=== PATIENT | female | born 1980 | race Caucasian/White ===

== ENCOUNTER 2020-08-06 22:16 | Emergency (ER) | payer OTHER, SELFPAY ==
[2020-08-06 22:19] VITALS: BP 132/68; PULSE 99; RESP 20; O2SAT 100; BMI 21.4
--- NOTE | 2020-08-06 22:30 | ECG_ITS ---
Test Reason : PALPITATIONS Blood Pressure : / mmHG Vent. Rate : 088 BPM Atrial Rate : 088 BPM P-R Int : 148 ms QRS Dur : 102 ms QT Int : 388 ms P-R-T Axes : 073 [id number] 039 degrees QTc Int : 469 ms Normal sinus rhythm Rightward axis Incomplete right bundle branch block Nonspecific ST abnormality Borderline ECG When compared with ECG of 27-JUN-2020 00:41, No significant change was found Referred By: Mini De Paz Electronically Signed By:CIRO BIRD
--- NOTE | 2020-08-06 22:42 | XR_ITS ---
EXAMINATION: XR CHEST CLINICAL INFORMATION: Palpitations COMPARISON: None TECHNIQUE: Frontal view of the chest was obtained. 11:01 PM FINDINGS: No significant abnormality is noted involving the heart, lungs, mediastinum, bony thorax or soft tissues. IMPRESSION: Unremarkable examination.
--- NOTE | 2020-08-06 22:59 | ED_ITS ---
HPI - Arrhythmia/Palpitations General Chief Complaint: Arrhythmia/Palpitations <VU Minaya Last Filed: 08/07/20 03:05> Stated Complaint: ANXIETY <VU Minaya Last Filed: 08/07/20 03:05> Time Seen by Provider: 08/06/20 22:42 <VU Minaya Last Filed: 08/07/20 03:05> Source: patient <VU Minaya Last Filed: 08/07/20 03:05> Mode of arrival: ambulatory <VU Minaya Last Filed: 08/07/20 03:05> Limitations: no limitations <VU Minaya Last Filed: 08/07/20 03:05> History of Present Illness HPI narrative: 39-year-old female presents with palpitations and anxiety. States that she over the past several weeks she has had multiple episodes of heart racing, dizziness, and anxiety. She has had a history of panic attacks in the past but states that this feels a bit different. States the palpitations start and then she becomes anxious because of the palpitations, prior anxiety attacks and panic have been the opposite were anxiety has started and then palpitations. 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 She does not have any chest pain or pressure with these palpitations but does have occasional shortness of breath. she does not describe any chest pain or pressure, fevers, chills, abdominal pain, abdominal distention, dysuria, hematuria, melena, hematochezia, abnormal menstrual cycle, easy bleeding bruising, loss of balance, falls, trauma, illicit drug use and alcohol use. <VU Minaya Last Filed: 08/07/20 03:05> MD complaint: rapid heart beat and skipped beats <VU Minyaa Last Filed: 08/07/20 03:05> Onset (ago): week(s) ( several weeks) <VU Minaya Last Filed: 08/07/20 03:05> Duration: intermittent <VU Minaya Last Filed: 08/07/20 03:05> Severity: moderate <VU Minaya Last Filed: 08/07/20 03:05> Context: occurred during rest and occurred during exertion <Mini De Paz NP - Last Filed: 08/07/20 03:05> Arrhythmia history: history of ablation and other ( Mrtyh-Dqqtapcrg-Qyypp syndrome) <Mini De Paz NP - Last Filed: 08/07/20 03:05> Associated symptoms: anxiety <Mini De Paz NP - Last Filed: 08/07/20 03:05> Related Data Allergies/Adverse Reactions: Allergies Allergy/AdvReac Type Severity Reaction Status Date / Time doxycycline [DOXYCYCLINE] Allergy Severe HIVES Unverified 07/20/20 17:29 THROAT CLOSING acetaminophen [From VICODIN] Allergy Mild CONSTIPAIIO Unverified 07/20/20 17:29 N hydrocodone [From VICODIN] Allergy Mild CONSTIPAIIO Unverified 07/20/20 17:29 N penicillin V Allergy Unknown Verified 06/27/20 00:00 Penicillins [PENICILLINS] Allergy Unknown HIVES Unverified 07/20/20 17:29 ibuprofen [From MOTRIN] AdvReac Unknown DIARRHEA Unverified 07/20/20 17:29 Motrin Allergy Unknown Uncoded 06/27/20 00:00 <Mini De Paz NP - Last Filed: 08/07/20 03:05> Review of Systems Review of Systems: Yes all other systems are reviewed and are negative <Mini De Paz NP - Last Filed: 08/07/20 03:05> Constitutional: Constitutional: Reports no additional constitutional complaints <Mini De Paz NP - Last Filed: 08/07/20 03:05> Eyes: Eyes: Reports no additional eye complaints <Mini De Paz NP - Last Filed: 08/07/20 03:05> ENT: Reports system reviewed and no additional complaints, except as documented <Mini De Paz NP - Last Filed: 08/07/20 03:05> Cardiovascular: Cardiovascular: Reports rapid heart rate, Reports irregular heart rhythm, Reports lightheadedness and Reports palpitations <Mini De Paz NP - Last Filed: 08/07/20 03:05> Respiratory: Respiratory: Reports no additional respiratory complaints <Mini De Paz NP - Last Filed: 08/07/20 03:05> Gastrointestinal: Gastrointestinal: Reports no additional gastrointestinal complaints <Mini De Paz NP - Last Filed: 08/07/20 03:05> Genitourinary: Genitourinary: Reports no additional female genitourinary com plaints <Mini De Paz NP - Last Filed: 08/07/20 03:05> Musculoskeletal: Musculoskeletal: Reports no additional musculoskeletal complaints <Mini De Paz NP - Last Filed: 08/07/20 03:05> Integumentary/Breasts: Skin/Breast: Reports system reviewed and no additional complaints, except as docu <Mini De Paz NP - Last Filed: 08/07/20 03:05> Neurologic: Reports system reviewed and no additional complaints, except as documented and Reports Abnormal speech present <Mini De Paz NP - Last Filed: 08/07/20 03:05> Psychiatric: Psychiatric: Reports anxiety <Mini De Paz NP - Last Filed: 08/07/20 03:05> Endocrine: Endocrine: Reports palpitations <Mini De Paz NP - Last Filed: 08/07/20 03:05> Hematologic/Lymphatic: Hematologic/Lymphatic: Reports no additional hematologic/lymphatic complaints <Mini De Paz NP - Last Filed: 08/07/20 03:05> [facility] Past Medical History Medical History: Medical History (Updated 08/07/20 @ 01:16 by Mini De Paz NP) Anxiety Yljnw-Vmooivreq-Ntsbj (WPW) syndrome <Mini De Paz NP - Last Filed: 08/07/20 03:05> Social History Social History: Social History Advance Directives: No <Mini De Paz NP - Last Filed: 08/07/20 03:05> Physical Exam Vital Signs and I&O and Narrative: Vital Signs and I&O: Vital Signs Pulse 99 08/06/20 22:19 Resp 20 08/06/20 22:19 BP 132/68 08/06/20 22:19 Pulse Ox 100 08/06/20 22:19 Intake & Output 08/07/20 08/07/20 08/08/20 06:59 18:59 06:59 Weight 65.771 kg Body Mass Index 21.4 <Mini De Paz HYDRATOR OPERATOR - Last Filed: 08/07/20 03:05> Vital Signs and I&O: Vital Signs Pulse 99 08/06/20 22:19 Resp 20 08/06/20 22:19 BP 132/68 08/06/20 22:19 Pulse Ox 100 08/06/20 22:19 Intake & Output 08/07/20 08/07/20 08/08/20 06:59 18:59 06:59 Weight 65.771 kg Body Mass Index 21.4 <Ricci Gilliland DO - Last Filed: 08/07/20 20:52> Const: General: cooperative, healthy appearing, comfortable, alert, awake, Physically active and acute distress ( Anxiety) mild <Mini De Paz HYDRATOR OPERATOR - Last Filed: 08/07/20 03:05> Nutritional Appearance: thin <Mini De Paz HYDRATOR OPERATOR - Last Filed: 08/07/20 03:05> Orientation/consciousness: patient oriented x3 <Mini De Paz HYDRATOR OPERATOR - Last Filed: 08/07/20 03:05> Limitations: no limitations <Mini De Paz HYDRATOR OPERATOR - Last Filed: 08/07/20 03:05> HENMT: Head: Yes normal to inspection <Mini De Paz HYDRATOR OPERATOR - Last Filed: 08/07/20 03:05> Ears: hearing grossly normal bilaterally <Mini De Paz HYDRATOR OPERATOR - Last Filed: 08/07/20 03:05> Face and sinus: Yes normal facial exam <Mini De Paz NP - Last Filed: 08/07/20 03:05> Mouth: Normal oral and palatal mucosa present <Mini De Paz NP - Last [place] ed: 08/07/20 03:05> Throat: Yes posterior oropharynx normal <Mini De Paz NP - Last Filed: 08/07/20 03:05> Eyes: General: appearance normal, both eyes and all related structures <Mini De Paz HYDRATOR OPERATOR - Last Filed: 08/07/20 03:05> Pupils: Equal, round and reactive pupils present <Mini De Paz HYDRATOR OPERATOR - Last Filed: 08/07/20 03:05> EOM: EOMs intact bilaterally <Mini De Paz HYDRATOR OPERATOR - Last Filed: 08/07/20 03:05> Neck: Neck: Yes normal visual inspection, Yes full ROM, Yes no meningeal signs, Yes trachea midline and Yes supple <Mini De Paz HYDRATOR OPERATOR - Last Filed: 08/07/20 03:05> Thyroid: Thyroid normal <Mini De Paz [facility] Last Filed: 08/07/20 03:05> Chest: Chest palpation & inspection: normal inspection of the chest and normal palpation of entire chest wall <Mini De Paz HYDRATOR OPERATOR - Last Filed: 08/07/20 03:05> Resp: Effort & Inspection: normal respiratory effort and able to speak in complete sentences <Mini De Paz HYDRATOR OPERATOR - Last Filed: 08/07/20 03:05> Auscultation: clear to auscultation bilaterally <Mini De Paz - Last Filed: 08/07/20 03:05> Cardio: Jugular venous distension: no JVD <Mini De Paz HYDRATOR OPERATOR - Last Filed: 08/07/20 03:05> Rate: regular rate <Mini De Paz HYDRATOR OPERATOR - Last Filed: 08/07/20 03:05> Rhythm: regular rhythm <Mini De Paz HYDRATOR OPERATOR - Last Filed: 08/07/20 03:05> GI: Inspection: Yes normal to inspection <Mini De Paz HYDRATOR OPERATOR - Last Filed: 08/07/20 03:05> Auscultation: normal bowel sounds <Mini De Paz HYDRATOR OPERATOR - Last Filed: 08/07/20 03:05> Skin: General skin exam: no rashes or lesions noted <Mini De Paz NP - Last Filed: 08/07/20 03:05> Neuro: General: patient oriented x3, gait normal and no meningeal signs <Mini De Paz NP - Last Filed: 08/07/20 03:05> Cranial nerves: Yes CN's II-XII intact bilaterally, Yes Facial sensation intact/muscles of mastication intact, Yes Intact sense of smell present, Yes Equal, round and reactive pupils present and Yes Bilaterally intact EOM present <Mini De Paz NP - Last Filed: 08/07/20 03:05> Cognition (Neuro): normal cognition <Mini De Paz HYDRATOR OPERATOR - Last Filed: 03:05> Speech: Abnormal speech present <Mini De PazVU - Last Filed: 08/07/20 03:05> Gait exam (Neuro): Normal gait present <Mini De PazVU - Last Filed: 08/07/20 03:05> Motor exam (neuro): 5/5 motor strength present throughout <Mini De Paz HYDRATOR OPERATOR - Last Filed: 08/07/20 03:05> Extrem: General: Yes normal to inspection and Yes full ROM <Mini De Paz HYDRATOR OPERATOR - Last Filed: 08/07/20 03:05> Psych: Appearance: grossly normal <Mini De PazVU - Last Filed: 08/07/20 03:05> Mental Status: mental status grossly normal <Mini De PazVU - Last Filed: 08/07/20 03:05> Speech and movement: Normal speech and movement present <Mini AriasVU coombs - Last Filed: 08/07/20 03:05> Affect: normal affect <Mini Ariascorin HYDRATOR OPERATOR - Last Filed: 08/07/20 03:05> Attitude: cooperative <Mini De Paz HYDRATOR OPERATOR - Last Filed: 08/07/20 03:05> Thought process: Normal thought process present <Mini AriasVU coombs - Last Filed: 08/07/20 03:05> Thought content: Normal thought content present <Mini Ariascorin HYDRATOR OPERATOR - Last Filed: 08/07/20 03:05> Insight: Good insight present (Psych) <Mini AlmeidaVU lezama - Last Filed: 08/07/20 03:05> Judgement: Good judgement present (Psych) <Mini AriasVU coombs - Last Filed: 08/07/20 03:05> Course Course Hospital Course: 39-year-old female with past medical history of Owifc-Xniqboyqi-Huask syndrome, history of ablation, history of thalassemia, history of anemia present s with palpitations and anxiety. we will rule out ACS, I did order CBC, chemistries, troponin, and TSH. CBC shows pancytopenia consistent with anemia and thalassemia however lab values are bit lower than her prior. H&H is 8.8/28.7 . Troponins are negative, EKG is normal sinus rhythm with incomplete bundle branch block at 88 beats per minute. There is no indication of Mmzsz-Pvhjkbxfy-Xlvys changes at this time. After discussion with Dr. Gilliland, patient can be followed as an outpatient with heme Onc, and Cardiology. 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 While we did not capture any significant abnormalities of heart rhythm during this stay. Patient verbalized understanding of and agrees to plan of care discharge home. <Mini De Paz NP - Last Filed: 08/07/20 03:05> MDM - Arrhythmia/Palpitations Differential Diagnosis Differential diagnosis: Likely palpitations, sinus tachycardia, artial fibrillation, artial flutter, ventricular premature beats, supraventricular tachycardia and WPW <Mini De Paz NP - Last Filed: 08/07/20 03:05> Medical Records Attestation: I reviewed the patient's medical records. <Mini De Paz NP - Last Filed: 08/07/20 03:05> Lab Data Attestation: I reviewed the patient's lab results. <Mini De Paz NP - Last Filed: 08/07/20 03:05> Result diagrams: : 08/06/20 23:43 08/06/20 23:42 <Mini De Paz NP - Last Filed: 08/07/20 03:05> Labs: Lab Results 08/06/20 08/06/20 08/06/20 Range/Units 23:42 23:43 23:43 WBC 3.9 L (4.8-10.8) X10*3/uL RBC 4.00 L (4.20-5.50) X10*6/uL Hgb 8.8 L (12.0-16.0) g/dl Hct 28.7 L (37-47) % MCV 71.8 L (80-98) fL MCH 22.0 L (27.0-33.0) pg MCHC 30.7 L (31.0-35.0) g/dl RDW 17.1 H (11.0-16.0) % Plt Count 181 (160-400) X10*3/uL MPV 9.9 (9.4-12.3) fL Immature Gran % (Auto) 0.3 (0.0-0.4) % Neut % (Auto) 74.1 H (45-73) % Lymph % (Auto) 14.2 L (20-40) % [place] % (Auto) 9.3 (2-11) % Eos % (Auto) 1.3 (0-4) % Baso % (Auto) 0.8 (0-2) % Neut # (Auto) 2.9 (2.0-8.3) X10*3/uL Lymph # (Auto) 0.6 L (1.2-4.9) X10*3/uL [place] # (Auto) 0.4 (0.1-1.2) X10*3/uL Eos # (Auto) 0.1 (0.0-0.4) X10*3/uL Baso # (Auto) 0.0 (0.0-0.2) X10*3/uL Abs Immat Gran (auto) 0.01 (0.00-0.03) X10*3/uL Absolute Nucleated RBC 0.000 (0.0-0.012) X10*3/uL Nucleated RBC % (auto) 0.0 (0.0-0.2) /100WBC Smear Tech's Comments VERIFIED PT (10.8-13.0) SEC INR (0.9-1.1) Sodium 137 (135-145) mmol/L Potassium 3.6 (3.3-5.1) mmol/l Chloride 108 (96-108) mmol/L Carbon Dioxide 21 L (22-29) mmol/L Anion Gap 12 (12-20) BUN 10 (9-16) mg/dL Creatinine 0.75 (0.5-1.4) mg/dL Estim Creat Clear Calc 105.6 Estimated GFR > 60 Random Glucose 112 (60-115) mg/dL Calcium 8.4 (8.4-10.2) mg/dL Magnesium (1.6-2.6) mg/dL Troponin I High Sens < 3.5 (<3.5-17.0) ng/L TSH (0.32-4.0) mIU/mL Urine Color Urine Appearance Urine pH (5.0-8.0) Ur Specific T[place]ner (1.005-1.025) Urine Protein (NEG-TRACE) MG/DL Urine Glucose (UA) (NEG) MG/DL Urine Ketones (NEG) MG/DL Urine Blood (NEG) Urine Nitrite (NEG) Ur Leukocyte Esterase (NEG) Urine Test (NEGATIVE) Salicylates (15-30) mg/dL Urine Opiates Screen (Not Detect) Ur Barbiturates Screen (Not Detect) Ur Phencyclidine Scrn (Not Detect) Ur Amphetamines Screen (Not Detect) U Benzodiazepines Scrn (Not Detect) Urine Cocaine Screen (Not Detect) U Marijuana (THC) Screen (Not Detect) 08/06/20 08/06/20 08/06/20 Range/Units 23:45 23:45 23:45 WBC (4.8-10.8) X10*3/uL RBC (4.20-5.50) X10*6/uL Hgb (12.0-16.0) g/dl Hct (37-47) % MCV (80-98) fL MCH (27.0-33.0) pg MCHC (31.0-35.0) g/dl RDW (11.0-16.0) % Plt Count (160-400) X10*3/uL MPV (9.4-12.3) fL Immature Gran % (Auto) (0.0-0.4) % Neut % (Auto) (45-73) % Lymph % (Auto) (20-40) % [place] % (Auto) (2-11) % Eos % (Auto) (0-4) % Baso % (Auto) (0-2) % Neut # (Auto) (2.0-8.3) X10*3/uL Lymph # (Auto) (1.2-4.9) X10*3/uL [place] # (Auto) (0.1-1.2) X10*3/uL Eos # (Auto) (0.0-0.4) X10*3/uL Baso # (Auto) (0.0-0.2) X10*3/uL Abs Immat Gran (auto) (0.00-0.03) X10*3/uL Absolute Nucleated RBC (0.0-0.012) X10*3/uL Nucleated RBC % (auto) (0.0-0.2) /100WBC Smear Tech's Comments PT 13.6 H (10.8-13.0) SEC INR 1.1 (0.9-1.1) Sodium (135-145) mmol/L Potassium (3.3-5.1) mmol/l Chloride (96-108) mmol/L Carbon Dioxide (22-29) mmol/L Anion Gap (12-20) BUN (9-16) mg/dL Creatinine (0.5-1.4) mg/dL Estim Creat Clear Calc Estimated GFR Random Glucose (60-115) mg/dL Calcium (8.4-10.2) mg/dL Magnesium 2.1 (1.6-2.6) mg/dL Troponin I High Sens (<3.5-17.0) ng/L TSH 1.41 (0.32-4.0) mIU/mL Urine Color Urine Appearance Urine pH (5.0-8.0) Ur Specific [place] (1.005-1.025) Urine Protein (NEG-TRACE) MG/DL Urine Glucose (UA) (NEG) MG/DL Urine Ketones (NEG) MG/DL Urine Blood (NEG) Urine Nitrite (NEG) Ur Leukocyte Esterase (NEG) Urine Test (NEGATIVE) Salicylates < 5.0 L (15-30) mg/dL Urine Opiates Screen (Not Detect) Ur Barbiturates Screen (Not Detect) Ur Phencyclidine Scrn (Not Detect) Ur Amphetamines Screen (Not Detect) U Benzodiazepines Scrn (Not Detect) Urine Cocaine Screen (Not Detect) U Marijuana (THC) Screen (Not Detect) 08/07/20 08/07/20 08/07/20 Range/Units 00:10 00:10 00:10 WBC (4.8-10.8) X10*3/uL RBC (4.20-5.50) X10*6/uL Hgb (12.0-16.0) g/dl Hct (37-47) % MCV (80-98) fL MCH (27.0-33.0) pg MCHC (31.0-35.0) g/dl RDW (11.0-16.0) % Plt Count (160-400) X10*3/uL MPV (9.4-12.3) fL Immature Gran % (Auto) (0.0-0.4) % Neut % (Auto) (45-73) % Lymph % (Auto) (20-40) % [place] % (Auto) (2-11) % Eos % (Auto) (0-4) % Baso % (Auto) (0-2) % Neut # (Auto) (2.0-8.3) X10*3/uL Lymph # (Auto) (1.2-4.9) X10*3/uL [place] # (Auto) (0.1-1.2) X10*3/uL Eos # (Auto) (0.0-0.4) X10*3/uL Baso # (Auto) (0.0-0.2) X10*3/uL Abs Immat Gran (auto) (0.00-0.03) X10*3/uL Absolute Nucleated RBC (0.0-0.012) X10*3/uL Nucleated RBC % (auto) (0.0-0.2) /100WBC Smear Tech's Comments PT (10.8-13.0) SEC INR (0.9-1.1) Sodium (135-145) mmol/L Potassium (3.3-5.1) mmol/l Chloride (96-108) mmol/L Carbon Dioxide (22-29) mmol/L Anion Gap (12-20) BUN (9-16) mg/dL Creatinine (0.5-1.4) mg/dL Estim Creat Clear Calc Estimated GFR Random Glucose (60-115) mg/dL Calcium (8.4-10.2) mg/dL Magnesium (1.6-2.6) mg/dL Troponin I High Sens (<3.5-17.0) ng/L TSH (0.32-4.0) mIU/mL Urine Color YELLOW Urine Appearance CLEAR Urine pH 7.5 (5.0-8.0) Ur Specific [place] 1.015 (1.005-1.025) Urine Protein NEG (NEG-TRACE) MG/DL Urine Glucose (UA) NEG (NEG) MG/DL Urine Ketones NEG (NEG) MG/DL Urine Blood NEG (NEG) Urine Nitrite NEG (NEG) Ur Leukocyte Esterase NEG (NEG) Urine Test NEGATIVE (NEGATIVE) Salicylates (15-30) mg/dL Urine Opiates Screen Not Detected (Not Detect) Ur Barbiturates Screen Not Detected (Not Detect) Ur Phencyclidine Scrn Not Detected (Not Detect) Ur Amphetamines Screen Not Detected (Not Detect) U Benzodiazepines Scrn Not Detected (Not Detect) Urine Cocaine Screen Not Detected (Not Detect) U Marijuana (THC) Screen Not Detected (Not Detect) <Mini De Paz NP - Last Filed: 08/07/20 03:05> Lab Results 08/06/20 08/06/20 08/06/20 Range/Units 23:42 23:43 23:43 WBC 3.9 L (4.8-10.8) X10*3/uL RBC 4.00 L (4.20-5.50) X10*6/uL Hgb 8.8 L (12.0-16.0) g/dl Hct 28.7 L (37-47) % MCV 71.8 L (80-98) fL MCH 22.0 L (27.0-33.0) pg MCHC 30.7 L (31.0-35.0) g/dl RDW 17.1 H (11.0-16.0) % Plt Count 181 (160-400) X10*3/uL MPV 9.9 (9.4-12.3) fL Immature Gran % (Auto) 0.3 (0.0-0.4) % Neut % (Auto) 74.1 H (45-73) % Lymph % (Auto) 14.2 L (20-40) % [place] % (Auto) 9.3 (2-11) % Eos % (Auto) 1.3 (0-4) % Baso % (Auto) 0.8 (0-2) % Neut # (Auto) 2.9 (2.0-8.3) X10*3/uL Lymph # (Auto) 0.6 L (1.2-4.9) X10*3/uL [place] # (Auto) 0.4 (0.1-1.2) X10*3/uL Eos # (Auto) 0.1 (0.0-0.4) X10*3/uL Baso # (Auto) 0.0 (0.0-0.2) X10*3/uL Abs Immat Gran (auto) 0.01 (0.00-0.03) X10*3/uL Absolute Nucleated RBC 0.000 (0.0-0.012) X10*3/uL Nucleated RBC % (auto) 0.0 (0.0-0.2) /100WBC Smear Tech's Comments VERIFIED PT (10.8-13.0) SEC INR (0.9-1.1) Sodium 137 (135-145) mmol/L Potassium 3.6 (3.3-5.1) mmol/l Chloride 108 (96-108) mmol/L Carbon Dioxide 21 L (22-29) mmol/L Anion Gap 12 (12-20) BUN 10 (9-16) mg/dL Creatinine 0.75 (0.5-1.4) mg/dL Estim Creat Clear Calc 105.6 Estimated GFR > 60 Random Glucose 112 (60-115) mg/dL Calcium 8.4 (8.4-10.2) mg/dL Magnesium (1.6-2.6) mg/dL Troponin I High Sens < 3.5 (<3.5-17.0) ng/L TSH (0.32-4.0) mIU/mL Urine Color Urine Appearance Urine pH (5.0-8.0) Ur Specific [place] (1.005-1.025) Urine Protein (NEG-TRACE) MG/DL Urine Glucose (UA) (NEG) MG/DL Urine Ketones (NEG) MG/DL Urine Blood (NEG) Urine Nitrite (NEG) Ur Leukocyte Esterase (NEG) Urine Test (NEGATIVE) Salicylates (15-30) mg/dL Urine Opiates Screen (Not Detect) Ur Barbiturates Screen (Not Detect) Ur Phencyclidine Scrn (Not Detect) Ur Amphetamines Screen (Not Detect) U Benzodiazepines Scrn (Not Detect) Urine Cocaine Screen (Not Detect) U Marijuana (THC) Screen (Not Detect) 08/06/20 08/06/20 08/06/20 Range/Units 23:45 23:45 23:45 WBC (4.8-10.8) X10*3/uL RBC (4.20-5.50) X10*6/uL Hgb (12.0-16.0) g/dl Hct (37-47) % MCV (80-98) fL MCH (27.0-33.0) pg MCHC (31.0-35.0) g/dl RDW (11.0-16.0) % Plt Count (160-400) X10*3/uL MPV (9.4-12.3) fL Immature Gran % (Auto) (0.0-0.4) % Neut % (Auto) (45-73) % Lymph % (Auto) (20-40) % [place] % (Auto) (2-11) % Eos % (Auto) (0-4) % Baso % (Auto) (0-2) % Neut # (Auto) (2.0-8.3) X10*3/uL Lymph # (Auto) (1.2-4.9) X10*3/uL [place] # (Auto) (0.1-1.2) X10*3/uL Eos # (Auto) (0.0-0.4) X10*3/uL Baso # (Auto) (0.0-0.2) X10*3/uL Abs Immat Gran (auto) (0.00-0.03) X10*3/uL Absolute Nucleated RBC (0.0-0.012) X10*3/uL Nucleated RBC % (auto) (0.0-0.2) /100WBC Smear Tech's Comments PT 13.6 H (10.8-13.0) SEC INR 1.1 (0.9-1.1) Sodium (135-145) mmol/L Potassium (3.3-5.1) mmol/l Chloride (96-108) mmol/L Carbon Dioxide (22-29) mmol/L Anion Gap (12-20) BUN (9-16) mg/dL Creatinine (0.5-1.4) mg/dL Estim Creat Clear Calc Estimated GFR Random Glucose (60-115) mg/dL Calcium (8.4-10.2) mg/dL Magnesium 2.1 (1.6-2.6) mg/dL Troponin I High Sens (<3.5-17.0) ng/L TSH 1.41 (0.32-4.0) mIU/mL Urine Color Urine Appearance Urine pH (5.0-8.0) Ur Specific [place] (1.005-1.025) Urine Protein (NEG-TRACE) MG/DL Urine Glucose (UA) (NEG) MG/DL Urine Ketones (NEG) MG/DL Urine Blood (NEG) Urine Nitrite (NEG) Ur Leukocyte Esterase (NEG) Urine Test (NEGATIVE) Salicylates < 5.0 L (15-30) mg/dL Urine Opiates Screen (Not Detect) Ur Barbiturates Screen (Not Detect) Ur Phencyclidine Scrn (Not Detect) Ur Amphetamines Screen (Not Detect) U Benzodiazepines Scrn (Not Detect) Urine Cocaine Screen (Not Detect) U Marijuana (THC) Screen (Not Detect) 08/07/20 08/07/20 08/07/20 Range/Units 00:10 00:10 00:10 WBC (4.8-10.8) X10*3/uL RBC (4.20-5.50) X10*6/uL Hgb (12.0-16.0) g/dl Hct (37-47) % MCV (80-98) fL MCH (27.0-33.0) pg MCHC (31.0-35.0) g/dl RDW (11.0-16.0) % Plt Count (160-400) X10*3/uL MPV (9.4-12.3) fL Immature Gran % (Auto) (0.0-0.4) % Neut % (Auto) (45-73) % Lymph % (Auto) (20-40) % [place] % (Auto) (2-11) % Eos % (Auto) (0-4) % Baso % (Auto) (0-2) % Neut # (Auto) (2.0-8.3) X10*3/uL Lymph # (Auto) (1.2-4.9) X10*3/uL [place] # (Auto) (0.1-1.2) X10*3/uL Eos # (Auto) (0.0-0.4) X10*3/uL Baso # (Auto) (0.0-0.2) X10*3/uL Abs Immat Gran (auto) (0.00-0.03) X10*3/uL Absolute Nucleated RBC (0.0-0.012) X10*3/uL Nucleated RBC % (auto) (0.0-0.2) /100WBC Smear Tech's Comments PT (10.8-13.0) SEC INR (0.9-1.1) Sodium (135-145) mmol/L Potassium (3.3-5.1) mmol/l Chloride (96-108) mmol/L Carbon Dioxide (22-29) mmol/L Anion Gap (12-20) BUN (9-16) mg/dL Creatinine (0.5-1.4) mg/dL Estim Creat Clear Calc Estimated GFR Random Glucose (60-115) mg/dL Calcium (8.4-10.2) mg/dL Magnesium (1.6-2.6) mg/dL Troponin I High Sens (<3.5-17.0) ng/L TSH (0.32-4.0) mIU/mL Urine Color YELLOW Urine Appearance CLEAR Urine pH 7.5 (5.0-8.0) Ur Specific [place]ner 1.015 (1.005-1.025) Urine Protein NEG (NEG-TRACE) MG/DL Urine Glucose (UA) NEG (NEG) MG/DL Urine Ketones NEG (NEG) MG/DL Urine Blood NEG (NEG) Urine Nitrite NEG (NEG) Ur Leukocyte Esterase NEG (NEG) Urine Test NEGATIVE (NEGATIVE) Salicylates (15-30) mg/dL Urine Opiates Screen Not Detected (Not Detect) Ur Barbiturates Screen Not Detected (Not Detect) Ur Phencyclidine Scrn Not Detected (Not Detect) Ur Amphetamines Screen Not Detected (Not Detect) U Benzodiazepines Scrn Not Detected (Not Detect) Urine Cocaine Screen Not Detected (Not Detect) U Marijuana (THC) Screen Not Detected (Not Detect) <Ricci Gilliland DO - Last Filed: 08/07/20 20:52> ECG Data Attestation: I personally reviewed and interpreted this ECG as follows: <Mini De Paz NP - Last Filed: 08/07/20 03:05> ECG interpretation date: 08/06/20 <Mini De Paz NP - Last Filed: 08/07/20 03:05> ECG interpretation time: 22:39 <Mini De Paz NP - Last Filed: 08/07/20 03:05> Interpretation: Normal sinus rhythm at 88 beats per minute, rightward axis, incomplete right bundle-branch block, p.r. interval 148, QT 388 QTC 469. No indication of ST elevation or depression no indication of ischemia at this time <Mini De Paz NP - Last Filed: 08/07/20 03:05> Discharge Plan Discharge Clinical Impression: Palpitations Anemia Qualifiers: Anemia type: unspecified type Qualified Code(s): D64.9 - Anemia, unspecified Thalassemia Qualifiers: Thalassemia type: unspecified type Qualified Code(s): D56.9 - Thalassemia, unspecified <Mini De Paz NP - Last Filed: 08/07/20 03:05> Patient Disposition: Home, Self-Care <Mini De Paz NP - Last Filed: 08/07/20 03:05> Instructions: Heart Palpitations (ED), Anemia (ED), Jxqcj-Ojfiilpuc-Mlpuz Syndrome (ED) <Mini De Paz NP - Last Filed: 08/07/20 03:05> Additional Instructions: you were evaluated for palpitations. Your blood counts are low consistent with past history of anemia and thalassemia. you must follow-up with primary care physician and or Hematology for further workup. 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 Palpitations could be because of the anemia, however because of her significant cardiac history you must follow-up with cardiology. It is highly recommended that you have a cardiac cath tech. Please follow-up with psychology lecturer. follow-up with primary care physician as needed. Return to the emergency department for any new, concerning, or worsening symptoms. <Mini De Paz NP - Last Filed: 08/07/20 03:05> Referrals: Gus Blanco MD [Physician] - 2 days ( anemia and thalassemia) Kip Dent MD [Physician] - 2 days ( palpitations, history of cardiac ablation and Ohexb-Pfwniwuqo-Czxce syndrome) <Mini De Paz NP - Last Filed: 08/07/20 03:05> Interventions: ED Discharge Assessment Last Done: 08/07/20 01:40 <Mini De Paz NP - Last Filed: 08/07/20 03:05> Discharge Date/Time: 08/07/20 01:42 <Mini De Paz NP - Last Filed: 08/07/20 03:05>
[2020-08-06 23:04] VITALS: PULSE 76
[2020-08-06] MEDS: 0.9 % Sodium Chloride 1,000 ML 999 ML IVCONT (23:31)
[2020-08-06 23:56] LABS: Basophils Percent Auto 0.8 % (0-2); Eosinophils Absolute Auto 0.1 X10*3/uL (0.0-0.4); Eosinophils Percent Auto 1.3 % (0-4); Hematocrit 28.7 % (37-47); Hemoglobin 8.8 g/dl (12.0-16.0); Imm Gran Abs Auto 0.01 X10*3/uL (0.00-0.03); Imm Gran Pct Auto 0.3 % (0.0-0.4); Lymphocytes Absolute Auto 0.6 X10*3/uL (1.2-4.9); Lymphocytes Percent Auto 14.2 % (20-40); MANUAL DIFF FLAG SCAN; Mean Corpuscular HGB Conc 30.7 g/dl (31.0-35.0); Mean Corpuscular Volume 71.8 fL (80-98); Mean Platelet Volume 9.9 fL (9.4-12.3); Monocytes Absolute Auto 0.4 X10*3/uL (0.1-1.2); Monocytes Percent Auto 9.3 % (2-11); Neutrophils Absolute Auto 2.9 X10*3/uL (2.0-8.3); Neutrophils Percent Auto 74.1 % (45-73); Platelet Count 181 X10*3/uL (160-400); Red Cell Distribution Width 17.1 % (11.0-16.0); SCAN SMEAR FLAG 1; White Blood Count 3.9 X10*3/uL (4.8-10.8)
[2020-08-07 00:05] LABS: INTERNATIONAL NORM RATIO 1.1 (0.9-1.1); Prothrombin Time 13.6 SEC (10.8-13.0)
[2020-08-07 00:16] LABS: Anion Gap 12 (12-20); Blood Urea Nitrogen 10 mg/dL (9-16); Calcium 8.4 mg/dL (8.4-10.2); Carbon Dioxide 21 mmol/L (22-29); Chloride 108 mmol/L (96-108); Creatinine Clr Calc Pharmacy 105.6; Estimated Glomerular Filt Rate > 60; Glucose Random 112 mg/dL (60-115); Potassium 3.6 mmol/l (3.3-5.1); Sodium 137 mmol/L (135-145)
[2020-08-07 00:16] LABS: Magnesium 2.1 mg/dL (1.6-2.6)
[2020-08-07 00:17] LABS: Salicylate < 5.0 mg/dL (15-30)
--- NOTE | 2020-08-07 00:20 | PC.NURSE ---
IV placed, labs sent. Urine sent. Patient ambulated to bathroom with steady gait. Denies dizziness.
[2020-08-07 00:21] LABS: Troponin-I High Sensitivity < 3.5 ng/L (<3.5-17.0)
[2020-08-07 00:22] LABS: Glucose Urine UA NEG (NEG); Leukocyte Esterase Urine NEG (NEG); Nitrite Urine NEG (NEG); PH 7.5 (5.0-8.0); Specific Gravity - Urine 1.015 (1.005-1.025); Urine Blood NEG (NEG); Urine Ketones NEG (NEG); Urine Protein NEG (NEG-TRACE)
[2020-08-07 00:23] LABS: Appearance Urine CLEAR; Color Urine YELLOW; UACC Culture Trigger NO
[2020-08-07 00:24] LABS: UPreg QC Valid YES; Urine Pregnancy NEGATIVE (NEGATIVE)
[2020-08-07 00:27] LABS: SLIDE REVIEW VERIFIED
[2020-08-07 00:36] LABS: Amphetamine Screen Urine Not Detected (Not Detect); Barbiturates, Urine Not Detected (Not Detect); Benzodiazepines Screen Urine Not Detected (Not Detect); Cannabinoid Screen Urine Not Detected (Not Detect); Cocaine Screen Urine Not Detected (Not Detect); Opiate Screen Urine Not Detected (Not Detect); Phencyclidine Screen Urine Not Detected (Not Detect)
[2020-08-07 00:37] LABS: Thyroid Stimulating Hormone 1.41 mIU/mL (0.32-4.0)
--- NOTE | 2020-08-07 01:13 | PC.NURSE ---
Patient ambulate to the bathroom.
== END 2020-08-07 01:42 | disposition home or self-care (01) ==
PROVIDERS: Nurse Practitioner Family; Emergency Provider Emergency Medicine
DX: R00.2 Palpitations (principal); D64.9 Anemia, unspecified; D56.9 Thalassemia, unspecified; I45.6 Pre-excitation syndrome; F41.9 Anxiety disorder, unspecified
CPT/HCPCS: 36415; 71045; 80048; 80307; 81003; 81025; 83735; 84443; 84484; 85025; 85610; 93005; 93010; 96360; 99283; 99284; G0480

== ENCOUNTER 2020-08-26 04:21 | Emergency (ER) | payer OTHER, SELFPAY ==
--- NOTE | 2020-08-26 | ECG_ITS ---
Test Reason : CHEST PAIN Blood Pressure : / mmHG Vent. Rate : 096 BPM Atrial Rate : 096 BPM P-R Int : 152 ms QRS Dur : 104 ms QT Int : 378 ms P-R-T Axes : 081 097 021 degrees QTc Int : 477 ms Normal sinus rhythm Rightward axis Incomplete right bundle branch block Nonspecific T wave abnormality Inferior leads Abnormal ECG When compared with ECG of 06-AUG-2020 22:39, No significant change was found Referred By: Oscar Fonseca Electronically Signed By:JOANNE BACA MD
[2020-08-26 04:36] VITALS: BP 129/69; PULSE 98; RESP 18; TEMP 36.8; O2SAT 100; BMI 18.8
--- NOTE | 2020-08-26 04:43 | XR_ITS ---
EXAMINATION: XR CHEST CLINICAL INFORMATION: Chest pain COMPARISON: 08/06/2020 TECHNIQUE: Frontal view of the chest was obtained. FINDINGS: The lungs are clear with no focal consolidation. No evidence of pneumothorax, pulmonary edema, or pleural effusions. The cardiomediastinal silhouette is unremarkable. No acute osseous findings. XR/XR chest 1V IMPRESSION: No acute cardiopulmonary findings.
--- NOTE | 2020-08-26 04:45 | ED.CHESTPAIN ---
HPI - Chest Pain General Chief Complaint: Chest Pain Stated Complaint: CHEST PAIN Time Seen by Provider: 08/26/20 04:43 Source: patient Mode of arrival: ambulatory Limitations: no limitations History of Present Illness HPI narrative: Patient was watching TV when start to have chest pain and palpitation. Chest pain described as chest tightness in the mid of the chest, no radiation, pain is gone now, was associated with palpitation and dizziness, nothing made it worse or better. Related Data Allergies Allergy/AdvReac Type Severity Reaction Status Date / Time doxycycline [DOXYCYCLINE] Allergy Severe HIVES Verified 08/26/20 04:35 THROAT CLOSING acetaminophen [From VICODIN] Allergy Mild CONSTIPAIIO Verified 08/26/20 04:35 N hydrocodone [From VICODIN] Allergy Mild CONSTIPAIIO Verified 08/26/20 04:35 N penicillin V Allergy Unknown Hives Verified 08/26/20 04:35 Penicillins [PENICILLINS] Allergy Unknown HIVES Verified 08/26/20 04:35 ibuprofen [From MOTRIN] AdvReac Unknown DIARRHEA Verified 08/26/20 04:35 Motrin Allergy Unknown Diarrhea Uncoded 08/26/20 04:35 Review of Systems Review of Systems: All other systems are reviewed and are negative Constitutional: Reports as per HPI and Reports no additional constitutional complaints Eyes: Reports as per HPI and Reports no additional eye complaints Reports system reviewed and no additional complaints, except as documented Cardiovascular: Reports as per HPI and Reports no additional cardiovascular complaints Respiratory: Reports as per HPI and Reports no additional respiratory complaints Gastrointestinal: Reports as per HPI and Reports no additional gastrointestinal complaints Genitourinary: Reports no additional female genitourinary complaints Musculoskeletal: Reports no additional musculoskeletal complaints Skin/Breast: Reports system reviewed and no additional complaints, except as docu Psychiatric: Reports no additional psychiatric complaints Endocrine: Reports no additional endocrine complaints Hematologic/Lymphatic: Reports no additional hematologic/lymphatic complaints Allergic/Immunologic: Reports no additional allergic/immunologic complaints Reports system reviewed and no additional complaints, except as documented and Reports Abnormal speech present [facility] Past Medical History Medical History Anxiety Nitqy-Rkfkabrrw-Wfztz (WPW) syndrome Social History Social History Alcohol intake: never Smoking Status: Current every day smoker Smoked in Last 30 Days: Yes Use of substances other than those prescribed or required for medical reasons: No Substance Use Type Other:: suboxone Advance Directives: No Advance Directives Information Provided: No Physical Exam Vital Signs: Vital Signs: Vital Signs Temp Pulse Resp BP Pulse Ox 08/26/20 06:30 71 18 99 08/26/20 04:36 98.3 F 98 18 129/69 100 Body Mass Index 18.8 vital signs have been reviewed as normal and appeared to be correct. Blood pressure normal. Heart rate normal. Respiration rate normal. Temperature normal. Oxygen saturation normal. Appearance: Alert. Oriented X3. No acute distress. anxious. Head: Normal external exam. Normocephalic. Atraumatic. No [place] signs noted. No raccoon eyes noted Eyes: PERRLA. EOMI. Conjunctiva and sclera normal. Eyelids normal. ENT: EAC normal. TM's Normal. Pharynx normal. Uvula midline. Moist mucous membranes. No trismus noted. No drooling noted. No muffled voice noted. Neck: Normal inspection. Neck supple. FROM. No adenopathy. Thyroid Normal. No meningeal signs. No neck mass noted. CVS: Normal heart rate and rhythm. Heart sound normal. No murmurs noted. Pulses normal throughout. Respiratory: No respiratory distress. Painless inspiration. Breath sounds normal. No wheezes/rales/rhonchi noted. Chest nontender. No accessory muscle usage noted or decreased air movement noted. Abdomen: Soft and nontender. Bowel sounds normal in all 4 quadrants. No distention noted. No organomegaly noted. No visible injury noted. Back: No CVA tenderness. Full range of motion noted. Skin: Skin warm and dry. Normal skin color. Normal skin turgor. No rashes/lesions/lacerations noted. Extremities: No lower extremity edema. Extremities exhibit normal range of motion. Extremities nontender. Neuro: Oriented X 3. No motor deficit. No sensory deficit. Reflexes normal. Course Course Course Narrative: Chest pain/ palpitation 45 minutes ago, patient had similar symptoms 2 weeks ago. Check labs /EKG/ chest x-ray /reassess. MDM - Chest Pain MDM Narrative Medical decision making narrative: assessment and plan. 39-year-old female came in with chest pain and shortness of breath, patient had unremarkable EKG, unremarkable labs including D-dimer /troponin (awaiting for 2nd troponin which expected to be negative and patient to be discharge ). Lab Data Result diagrams: 08/26/20 04:48 08/26/20 04:48 Labs: Lab Results 08/26/20 08/26/20 08/26/20 Range/Units 04:48 04:48 04:48 D-Dimer < 200 NG/ML Sodium 139 (135-145) mmol/L Potassium 3.9 (3.3-5.1) mmol/l Chloride 103 (96-108) mmol/L Carbon Dioxide 27 (22-29) mmol/L Anion Gap 13 (12-20) BUN 11 (9-16) mg/dL Creatinine 0.72 (0.5-1.4) mg/dL Estim Creat Clear Calc 94.0 Estimated GFR > 60 Random Glucose 107 (60-115) mg/dL Calcium 8.8 (8.4-10.2) mg/dL Total Bilirubin 0.3 (0.0-1.0) mg/dL Direct Bilirubin 0.2 (0.0-0.5) mg/dL AST 11 (5-31) U/L ALT 8 (0-31) U/L Alkaline Phosphatase 40 (39-117) U/L Troponin I High Sens < 3.5 (<3.5-17.0) ng/L Total Protein 7.1 (6.5-8.0) g/dL Albumin 4.4 (3.5-5.0) g/dL Lipase 22 (8-78) U/L ECG Data ECG #1: Interpretation: Normal sinus rhythm at 96 beats per minute, normal intervals, incomplete right bundle shiv block, nonspecific T-wave changes in the inferior leads. Discharge Plan Discharge Clinical Impression: Chest pain, Acute anxiety Patient Disposition: Home, Self-Care Instructions: Chest Pain (ED) Referrals: Physician,Unknown [Primary Care Provider] - 2 days
[2020-08-26 05:11] LABS: D Dimer < 200 NG/ML
--- NOTE | 2020-08-26 05:22 | PC.NURSE ---
pt hampton x 3 with equal and no labored rr. pt coming from home for chest pain, palpitations prior to arrival. pt states she was here two weeks ago for similar episode. pt speaking in clear and full sentences. pt lined and labbed. refused fluids, could not give urine sample at this time. pt nsr on monitor. vitals wnl.
[2020-08-26 05:45] LABS: Alanine Aminotransferase 8 U/L (0-31); Albumin Level 4.4 g/dL (3.5-5.0); Alkaline Phosphatase 40 U/L (39-117); Anion Gap 13 (12-20); Aspartate Amino Transferase 11 U/L (5-31); Bilirubin Direct 0.2 mg/dL (0.0-0.5); Bilirubin Total 0.3 mg/dL (0.0-1.0); Blood Urea Nitrogen 11 mg/dL (9-16); Calcium 8.8 mg/dL (8.4-10.2); Carbon Dioxide 27 mmol/L (22-29); Chloride 103 mmol/L (96-108); Estimated Glomerular Filt Rate > 60; Glucose Random 107 mg/dL (60-115); Lipase 22 U/L (8-78); Potassium 3.9 mmol/l (3.3-5.1); Sodium 139 mmol/L (135-145); Total Protein 7.1 g/dL (6.5-8.0)
[2020-08-26 05:51] LABS: Troponin-I High Sensitivity < 3.5 ng/L (<3.5-17.0)
--- NOTE | 2020-08-26 05:57 | PC.NURSE ---
dr rae at bedside. plan for repeat troponin and cbc at 745. pt agreeable
[2020-08-26 06:30] VITALS: PULSE 71; RESP 18; O2SAT 99
[2020-08-26 08:00] VITALS: BP 95/48; PULSE 72; RESP 12; TEMP 36.7; O2SAT 97
[2020-08-26 08:06] LABS: Basophils Percent Auto 0.2 % (0-2); Eosinophils Absolute Auto 0.1 X10*3/uL (0.0-0.4); Eosinophils Percent Auto 1.5 % (0-4); Hematocrit 31.5 % (37-47); Hemoglobin 9.4 g/dl (12.0-16.0); Imm Gran Abs Auto 0.01 X10*3/uL (0.00-0.03); Imm Gran Pct Auto 0.2 % (0.0-0.4); Lymphocytes Percent Auto 21.8 % (20-40); MANUAL DIFF FLAG NO; Mean Corpuscular HGB Conc 29.8 g/dl (31.0-35.0); Mean Corpuscular Volume 73.6 fL (80-98); Mean Platelet Volume 9.5 fL (9.4-12.3); Monocytes Absolute Auto 0.4 X10*3/uL (0.1-1.2); Monocytes Percent Auto 8.4 % (2-11); Neutrophils Absolute Auto 3.1 X10*3/uL (2.0-8.3); Neutrophils Percent Auto 67.9 % (45-73); Platelet Count 144 X10*3/uL (160-400); Red Blood Count 4.28 X10*6/uL (4.20-5.50); White Blood Count 4.5 X10*3/uL (4.8-10.8)
[2020-08-26 08:08] LABS: Glucose Urine UA NEG (NEG); Leukocyte Esterase Urine NEG (NEG); Nitrite Urine NEG (NEG); PH 7.5 (5.0-8.0); Specific Gravity - Urine 1.015 (1.005-1.025); Urine Blood NEG (NEG); Urine Ketones NEG (NEG); Urine Protein NEG (NEG-TRACE)
[2020-08-26 08:12] LABS: Appearance Urine CLEAR; Color Urine YELLOW
[2020-08-26 08:15] LABS: UPreg QC Valid YES; Urine Pregnancy NEGATIVE (NEGATIVE)
[2020-08-26 08:33] LABS: Troponin-I High Sensitivity < 3.5 ng/L (<3.5-17.0)
== END 2020-08-26 10:11 | disposition home or self-care (01) ==
PROVIDERS: Emergency Provider Emergency Medicine
DX: R07.9 Chest pain, unspecified (principal); F41.1 Generalized anxiety disorder; F43.0 Acute stress reaction; F17.200 Nicotine dependence, unspecified, uncomplicated; Z71.6 Tobacco abuse counseling
CPT/HCPCS: 36415; 71045; 80048; 80076; 81003; 81025; 83690; 84484; 85025; 85379; 93005; 99284; 99285

== ENCOUNTER 2020-09-08 21:31 | Emergency (ER) | payer OTHER, SELFPAY ==
--- NOTE | 2020-09-08 | ECG_ITS ---
Test Reason : CHEST PAIN Blood Pressure : / mmHG Vent. Rate : 103 BPM Atrial Rate : 103 BPM P-R Int : 124 ms QRS Dur : 098 ms QT Int : 352 ms P-R-T Axes : 055 104 029 degrees QTc Int : 461 ms Sinus tachycardia Rightward axis Incomplete right bundle branch block Nonspecific ST abnormality Inferior leads Abnormal ECG When compared with ECG of 26-AUG-2020 04:36, No significant change was found Referred By: Generic ED Physician Electronically Signed By:JOANNE BACA MD
[2020-09-08 21:33] VITALS: BP 138/65; PULSE 122; RESP 17; TEMP 36.8; O2SAT 98; BMI 21.6
--- NOTE | 2020-09-08 23:51 | ED.ARRPALP ---
HPI - Arrhythmia/Palpitations General Chief Complaint: Arrhythmia/Palpitations Stated Complaint: palpitations Time Seen by Provider: 09/08/20 23:51 Source: patient Mode of arrival: ambulatory Limitations: no limitations History of Present Illness HPI narrative: patient has history of WPW status post ablation at age 22 was doing fine for till last 2 months when she been having multiple episodes of palpitation been to different hospitals and was been here twice this is the 6th time that she had palpitation episode today which lasted for 10 minutes and again started by the time patient came to the ER dose in sinus rhythm maximum heart rate was 98 patient is supposed to follow with service establishment attendant at this time patient asymptomatic no chest pain or shortness for breath MD complaint: rapid heart beat and heart racing Onset (ago): hour(s) ( 3) Duration: intermittent Severity: moderate Arrhythmia history: SVT and history of electrical cardioversion Related Data Allergies Allergy/AdvReac Type Severity Reaction Status Date / Time doxycycline [DOXYCYCLINE] Allergy Severe HIVES Verified 08/26/20 04:35 THROAT CLOSING acetaminophen [From VICODIN] Allergy Mild CONSTIPAIIO Verified 08/26/20 04:35 N hydrocodone [From VICODIN] Allergy Mild CONSTIPAIIO Verified 08/26/20 04:35 N penicillin V Allergy Unknown Hives Verified 08/26/20 04:35 Penicillins [PENICILLINS] Allergy Unknown HIVES Verified 08/26/20 04:35 ibuprofen [From MOTRIN] AdvReac Unknown DIARRHEA Verified 08/26/20 04:35 Motrin Allergy Unknown Diarrhea Uncoded 08/26/20 04:35 Review of Systems Review of Systems: REVIEW OF SYSTEMS: Pertinent positives and negatives are stated above in the history. GEN: no fevers, chills, fatigue anxiety+ HEENT: no nasal congestion, sore throat, ear pain NEURO: no headache, dizziness, focal weakness PULM: no cough, shortness of breath CV: no chest pain, , LE edema ABD: no abdominal pain, nausea, vomiting, diarrhea : no dysuria, urgency, frequency SKIN: no rash ROS otherwise negative x 10 PMFSH Past Medical History Medical History Anxiety Pdiwo-Audeqjjro-Ydicw (WPW) syndrome Social History Social History Alcohol intake: never Smoking Status: Current every day smoker Advance Directives: No Advance Directives Information Provided: No Physical Exam Vital Signs: Vital Signs: Last Vital Signs Temp 98.2 F 09/08/20 21:33 Pulse 122 H 09/08/20 21:33 Resp 17 09/08/20 21:33 BP 138/65 09/08/20 21:33 Pulse Ox 98 09/08/20 21:33 Body Mass Index 21.6 Appearance: Alert. Oriented X3. No acute distress. anxious Eyes: Pupils equal, round and reactive to light. ENT: Pharynx normal. Neck: Normal inspection. Neck supple. CVS: Normal heart rate and rhythm. Pulses normal. Respiratory: No respiratory distress. Breath sounds normal. Abdomen: Soft and nontender. Skin: Skin warm and dry. Normal skin color. Normal skin turgor. Extremities: No lower extremity edema. Good range of movement Neuro: Oriented X 3. No motor deficit. No sensory deficit. MDM - Arrhythmia/Palpitations MDM Narrative Medical decision making narrative: patient with history of WPW status post ablation having episodes of SVT for last 2 patient is supposed to see Cardiology for Holter monitoring at this time patient a similar episode which lasted for 10 minutes without any significant dizziness or syncope on arrival patient's heart rate of 98 sinus rhythm EKG showed no acute changes no signs of WPW at this time. Patient advised to follow-up with service establishment attendant Differential Diagnosis Differential diagnosis: Likely palpitations, sinus tachycardia, supraventricular tachycardia and WPW Medical Records Attestation: I reviewed the patient's medical records. ECG Data Attestation: I personally reviewed and interpreted this ECG as follows: Prior ECG tracings: available for review Interpretation: sinus tachycardia with heart rate of 103 incomplete right bundle-branch block no acute ST T wave changes right-sided axis no acute ischemia Discharge Plan Discharge Clinical Impression: Supraventricular tachycardia Patient Disposition: Home, Self-Care Instructions: Supraventricular Tachycardia (ED), Ermkw-Dcvkmgvqr-Eazdj Syndrome (ED) Additional Instructions: follow-up with service establishment attendant further evaluation and management Referrals: Christiano Jurado MD [Physician] - 5 days
== END 2020-09-09 00:27 | disposition home or self-care (01) ==
PROVIDERS: Emergency Provider Internal Medicine
DX: I47.1 Supraventricular tachycardia (principal); R00.2 Palpitations; F17.200 Nicotine dependence, unspecified, uncomplicated; Z71.6 Tobacco abuse counseling; Z79.899 Other long term (current) drug therapy
CPT/HCPCS: 93005; 99283

== ENCOUNTER → 2021-08-31 12:57 | Outpatient (REF) | payer OTHER, SELFPAY ==
--- NOTE | 2021-08-31 13:03 | ECG_ITS ---
Hook-up date: 2021-08-31 13:13:00 Duration: 47:59:00 Test Indications: PALPITATIONS Medications: [id number] QRS complexes 648 Ventricular ectopics which represent <1 % of total QRS comp. 36 Supraventricular ectopics which represent <1 % of total QRS comp. * Paced QRS complexs which represent % of total QRS comp. VENTRICULAR ECTOPY 644 Isolated 0 Bigeminal Cycles 2 Couplets 0 Runs 0 Beats in Runs * Beats LONGEST at * BPM at :: -- * Beats FASTEST at * BPM at :: -- SUPRAVENTRICULAR ECTOPY 24 Isolated 2 Couplets 2 Runs 8 Beats in Runs 4 Beats LONGEST at 127 BPM at 20:53:11 2021-08-31 4 Beats FASTEST at 127 BPM at 20:53:11 2021-08-31 HEART RATES 56 MIN at 01:46:40 2021-09-01 79 AVG 156 MAX at 15:42:43 2021-09-01 LONGEST RR 1.0800 secs at 07:34:49 2021-09-02 S-T LEVELS Channel 1 - 128 mm at 13:13:00 2021-08-31 - 128 mm at 13:13:00 2021-08-31 Channel 2 - 128 mm at 13:13:00 2021-08-31 - 128 mm at 13:13:00 2021-08-31 Channel 3 - 128 mm at 03:23:21 -- - 128 mm at 03:23:21 Basic rhythm Normal sinus rhythm No long pause or profound bradycardia Occasional Premature ventricular complexes Patient did not report any symptoms in the diary Referred By: Jayjay Cowan Overread By: SONNY ISIDRO MD
== END ==
LOC: HO.CARD 12:57
PROVIDERS: PCP Hospitalist; Visit Provider Family Medicine
DX: R00.2 Palpitations (principal); R00.0 Tachycardia, unspecified
CPT/HCPCS: 93225; 93226